=== PATIENT | male | born 2000 | race African-American/Black ===

== ENCOUNTER 2022-10-04 16:28 | Emergency (ER) | payer SELFPAY ==
[2022-10-04 16:37] VITALS: BP 129/61; PULSE 89; RESP 18; TEMP 98.6; BMI 22.8
[2022-10-04 18:07] LABS: THROAT:GRP A STREP NOT DETECTED (NOTDETECTED)
== END 2022-10-04 17:16 | disposition home or self-care (01) ==
LOC: JERFT 16:28
DX: R50.9 Fever, unspecified (principal); M79.10 Myalgia, unspecified site; J02.9 Acute pharyngitis, unspecified; J06.9 Acute upper respiratory infection, unspecified; Z20.822 Contact with and (suspected) exposure to COVID-19
CPT/HCPCS: 0241U-QW; 87651; 99283-25

== ENCOUNTER 2024-02-27 15:59 | Emergency (ER) | payer SELFPAY ==
[2024-02-27 16:09] VITALS: BP 141/65; PULSE 86; RESP 17; TEMP 98.4; BMI 22.8
[2024-02-27 19:26] LABS: HIV INTERPRETATION NEGATIVE (NEGATIVE)
== END 2024-02-27 18:19 | disposition home or self-care (01) ==
LOC: JER 15:59
DX: S43.102A Unspecified dislocation of left acromioclavicular joint, initial encounter (principal); X50.1XXA Overexertion from prolonged static or awkward postures, initial encounter
CPT/HCPCS: 36415; 73030-TC-LT-FY; 73130-TC-LT-FY; 86803; 87389; 99284-25